=== PATIENT | female | born 1935 | race Caucasian/White ===

== ENCOUNTER 2016-10-26 07:28 | Day surgery (SDC) | payer OTHER ==
[~2016-10-26] VITALS: Ht 162.6 cm; Wt 77.0 kg
[~2016-10-26 07:28] MED LIST: COLACE100 MG PO; COREG3.125 M1 PO; ELIQUIS5 MG PO; FLEXERIL10 MG PO; LOVENOX80 MG/0.8 SC; PRAVACHOL10 MG PO; PRILOSEC20 MG PO; PROAIR HFA8.5 GM IH; SYNTHROID100 MCG PO; TART CHERRY CA1 EACH PO; ULTRAM50 MG PO; VITAMIN B-12500 MC2 PO; VITAMIN D400 UNIT PO
== END 2016-10-26 17:35 | disposition home or self-care (01) ==
LOC: CATH 07:28
DX: I25.10 Atherosclerotic heart disease of native coronary artery without angina pectoris (principal); I13.10 Hypertensive heart and chronic kidney disease without heart failure, with stage 1 through stage 4 chronic kidney disease, or unspecified chronic kidney disease; N18.3 Chronic kidney disease, stage 3 (moderate); Z86.718 Personal history of other venous thrombosis and embolism; Z79.01 Long term (current) use of anticoagulants; M10.9 Gout, unspecified; E78.5 Hyperlipidemia, unspecified
CPT/HCPCS: 93005; C1769; C1887; J1644; J2250; J3010